=== PATIENT | female | born 1940 | race Caucasian/White ===

== ENCOUNTER 2019-06-27 18:01 | Emergency (ER) | payer MEDICARE, BC ==
--- NOTE | 2019-06-27 18:59 | EDM.PDOC ---
ED HPI GENERAL MEDICAL PROBLEM - General Chief Complaint: General Stated Complaint: SWOLLEN GLANDS Time Seen by Provider: 06/27/19 18:54 Source of Information: Reports: Patient, RN, RN Notes Reviewed History Limitations: Reports: No Limitations - History of Present Illness INITIAL COMMENTS - FREE TEXT/NARRATIVE: A 78-year-old female presents to ED with complaint of swelling in her cheeks x 6 hours. She reports symptoms have resolved. 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 Patient reports sudden swelling on her face 8 hours ago with resolution a of symptoms couple of hours ago when she went to congregation. She denies any shortness of breath, chest pain, palpitations, or pain. She did mention that her lymph nodes were swollen but that has also resolved. No treatment modalities utilized. She is here for an evaluation. Onset: Today Duration: Resolved Prior to Arrival Severity: Mild Neck Pain Score (Numeric/FACES): 5 - Related Data Allergies Allergy/AdvReac Type Severity Reaction Status Date / Time adhesive tape Allergy Rash Verified 06/27/19 18:16 metronidazole [From Flagyl] Allergy Vomiting Verified 06/27/19 18:16 Sulfa (Sulfonamide Allergy Other Verified 06/27/19 18:16 Antibiotics) Home Meds: Home Meds Aspirin 81 mg PO DAILY 06/11/17 [History] Levothyroxine [Synthroid] 50 mcg PO DAILY 06/11/17 [History] Lisinopril 5 mg PO DAILY 06/11/17 [History] Multivitamin [Multi-Day Vitamins] 1 tab PO DAILY 06/11/17 [History] Acetaminophen 500 mg PO ASDIRECTED 09/11/18 [History] Cranberry Conc/Ascorbic Acid [Cranberry 6,000 mg Softgel] 1 each PO ASDIRECTED 09/11/18 [History] Docusate Sodium 200 mg PO DAILY 09/11/18 [History] Fish Oil/Borage/Flax/Om3,6,9 1 [[place] 3-6-9 1,200 mg Softgel] 1 each PO ASDIRECTED 09/11/18 [History] Glucosam/Chondr/Collagn/Hyalur [Glucosamine & Chondroitin Cap] 1 each PO ASDIRECTED 09/11/18 [History] Polyethylene Glycol [Polyox Wsr-301] 1 cap PO BEDTIME 09/11/18 [History] Rosuvastatin Calcium 40 mg PO DAILY 09/11/18 [History] oxyCODONE HCl/Acetaminophen [Oxycodone-Acetaminophen 5-325] 1 tab PO Q6HR PRN [History] amLODIPine [Norvasc] 5 mg PO DAILY 09/16/18 [History] Albuterol Sulfate [Albuterol Sulfate Hfa] 2 puff PO Q4HR PRN 06/27/19 [History] Fluticasone/Vilanterol [Breo Ellipta 200-25 MCG Inhalation Kit] 1 puff PO DAILY 06/27/19 [History] Furosemide 40 mg PO DAILY 06/27/19 [History] Isosorbide Mononitrate [Imdur] 90 mg PO DAILY 06/27/19 [History] Montelukast [Singulair] 10 mg PO BEDTIME 06/27/19 [History] Nitroglycerin [Nitrostat] 0.4 mg SL ASDIRECTED PRN 06/27/19 [History] Omeprazole 20 mg PO BID 06/27/19 [History] Spironolactone [Aldactone] 12.5 mg PO DAILY 06/27/19 [History] Past Medical History HEENT History: Reports: Cataract Cardiovascular History: Reports: Hypertension, [place] Other Cardiovascular History: had stroke symptoms last year around [place]; then in July she had cp, came to ER in [place] then to [place] with [place]; said she usually sees a Dr. in [place]. Had cp and pain in her neck and shoulders. [place] ; since then: has had some neck and shoulder pain, but needs shoulder replacement, needs knee replacement and has upcoming surgery for GERD next month ; has a good appetite, has trouble with insomnia--wakes up then cannot get back to sleep; gets SOB with exertion with diaphoresis; has been to cardiology since [place], started on new med as well as Lasix, does not know the name of the med. will bring in name at next visit. GERD, hyperlipidemia, hypertension, gout, hypothyroidism, CVA, Respiratory History: Reports: Asthma Musculoskeletal History: Reports: Arthritis Endocrine/Metabolic History: Reports: Other (See Below) Other Endocrine/Metabolic History: thyroidectomy - Infectious Disease History Infectious Disease History: Reports: Chicken Pox, Measles, Mumps - Past Surgical History HEENT Surgical History: Reports: Tonsillectomy GI Surgical History: Reports: Appendectomy, Cholecystectomy, Colon, Hernia, Abdominal Female Surgical History: Reports: Hysterectomy Endocrine Surgical History: Reports: Thyroidectomy Musculoskeletal Surgical History: Reports: Knee Replacement, Shoulder Replacement, Other (See Below) Other Musculoskeletal Surgeries/Procedures:: back surgery Dermatological Surgical History: Reports: Skin Biopsy Social & Family History - Tobacco Use Smoking Status *Q: Never Smoker - Caffeine Use Caffeine Use: Reports: Coffee - Recreational Drug Use Recreational Drug Use: No ED ROS GENERAL - Review of Systems Review Of Systems: Comprehensive ROS is negative, except as noted in HPI. ED EXAM, GENERAL - Physical Exam Exam: See Below Exam Limited By: No Limitations General Appearance: Alert, WD/WN, No Apparent Distress Eye Exam: Bilateral Eye: Normal Inspection Ears: Normal External Exam, Normal Canal, Hearing Grossly Normal, Normal TMs Nose: Normal Inspection, Normal Mucosa, No Blood, Other (small oval shaved incision noted on the biopsy area under the left nose. ) Throat/Mouth: Normal Inspection, Normal Lips, Normal Teeth, Normal Gums, Normal Oropharynx, Normal Voice, No Airway Compromise Head: Atraumatic, Normocephalic Neck: Normal Inspection, Supple, Non-Tender, Full Range of Motion Respiratory/Chest: No Respiratory Distress, Lungs Clear, Normal Breath Sounds, No Accessory Muscle Use, Chest Non-Tender Cardiovascular: Normal Peripheral Pulses, Regular Rate, Rhythm, No Edema, No Gallop, No JVD, No Murmur, No Rub Course - Vital Signs Last Recorded V/S: Last Vital Signs Temp 98.8 F 06/27/19 18:18 Pulse 77 06/27/19 18:18 Resp 18 06/27/19 18:18 BP 128/72 06/27/19 18:18 Pulse Ox 94 L 06/27/19 18:18 - Re-Assessments/Exams Free Text/Narrative Re-Assessment/Exam: Reviewed exam and findings with patient. Symptoms to return to the ER were reviewed with the patient. She verbalized understanding. Departure - Departure Time of Disposition: 18:59 Disposition: Home, Self-Care 01 Condition: Good Clinical Impression: Allergic reaction Qualifiers: Encounter type: initial encounter Qualified Code(s): T78.40XA - Allergy, unspecified, initial encounter - Discharge Information Additional Instructions: Encouraged patient to continue to monitor symptoms and to return to the ER if having shortness of breath, chest pain, increased facial swelling. Patient verbalized understanding. Sepsis Event Note - Evaluation Sepsis Screening Result: No Definite Risk - Focused Exam Vital Signs: Vital Signs Temp Pulse Resp BP Pulse Ox 06/27/19 18:18 98.8 F 77 18 128/72 94 L Date Exam was Performed: 06/27/19 Time Exam was Performed: 18:54
== END 2019-06-27 19:05 | disposition home or self-care (01) ==
LOC: DL.ED 18:01
DX: T78.40XA Allergy, unspecified, initial encounter (principal); Z79.82 Long term (current) use of aspirin; Z79.899 Other long term (current) drug therapy; Z91.09 Other allergy status, other than to drugs and biological substances; Z88.2 Allergy status to sulfonamides; Z88.8 Allergy status to other drugs, medicaments and biological substances
CPT/HCPCS: 99282; 99283